=== PATIENT | male | born 1970 ===

== ENCOUNTER → 2018-04-19 | Outpatient (CLI) | payer OTHER | END | disposition home or self-care (01) | LOC: LAB 15:07 | PROVIDERS: ATTEND Preventive Medicine Preventive Medicine/Occupational Environmental Medicine | DX: Z02.1 Encounter for pre-employment examination (principal) | CPT/HCPCS: 36415; 86706; 86735; 86762; 86765; 86787 ==

== ENCOUNTER 2025-09-08 13:50 | Outpatient (CLI) | payer MEDICAID ==
--- NOTE | 2025-09-09 12:51 | DVHSR ---
APPROVED REPORT EXAM: Two-dimensional and M-mode echocardiogram with Doppler and color Doppler. INDICATION Dyspnea RISK FACTORS Height: 68, Weight: 185 DIMENSIONS LVDd 4.0 (3.8-5.7cm) LA (2D) 4.0 (1.9-4.0cm) Aortic Root 3.4 (2.0-3.7cm) LVDs 2.5 (2.5-4.0cm) LA (MM) (1.9-4.0cm) Aortic Cusp Exc 1.8 (1.5-2.0cm) EF (%) 68.0 (55-70%) Rt. Atrium 4.7 (1.9-4.0cm) Asc. Aorta cm IVSd 1.1 (0.7-1.1cm) RV (D) (1.8-2.4cm) PWd 1.2 (0.7-1.1cm) Mitral Valve Mitral Mitral Stenosis E wave 0.68m/s MV Mean GR. mmHg A wave 0.81m/s MV Peak GR. mmHg E/A ratio 0.8 2D MVA cm2 DECEL Time 174ms PRESS 1/2 Time ms Aortic Valve Aortic Valve Aortic Stenosis V1 1.17m/s AO Mean GR. 4mmHg V2 1.22m/s AO Peak GR. 6mmHg LVOT Diameter 2.0 (1.8-2.4cm) Doppler GEN 3.01cm2 AI P 1/2 Time 353.78ms Pulmonic Valve V2 0.93m/s Tricuspid Valve TR Velocity 2.56m/s RVSP 29mmHg Other Information Technically limited study due to body habitus. Conclusion Technically good study. Sinus rhythm. Left atrial enlargement with mild aortic root enlargement. Valves are structurally normal. Left ventricular function is preserved at 60% with normal RV function. Dopplers unremarkable. No pericardial effusion masses or vegetations.
== END 2025-09-08 17:00 | disposition home or self-care (01) ==
LOC: XYW 13:50
PROVIDERS: ATTEND Internal Medicine
DX: I51.7 Cardiomegaly (principal); R06.02 Shortness of breath
CPT/HCPCS: 93306